=== PATIENT | male | born 1935 | race Caucasian/White ===

== ENCOUNTER 2016-11-22 16:09 | Inpatient (IN) | payer MEDICARE ==
[~2016-11-22] VITALS: Ht 172.7 cm; Wt 93.8 kg
[~2016-11-22 16:09] MED LIST: ASPI81 PO; ATEN1TAB73 PO; FISH1000 PO; FLAXOIL2 PO; LORT5TAB PO; PROT40TA PO; SIMV20 PO; TAB-TAB PO
[2016-11-22 16:50] VITALS: BP 180/86; PULSE 67; RESP 18; TEMP 98; O2SAT 99
[2016-11-22] MEDS ORDERED: ONDANSETRON HCL 4 MG/2 ML VIAL IVP ONE (18:00)
[2016-11-22] MEDS ORDERED: HYDROmorphone HCL PF 1 MG/ML VIAL IVS ONE (18:00)
[2016-11-22] MEDS ORDERED: SODIUM CHLORIDE 0.9% FLUSH 10 ML FLUSH IVF PRN (18:00)
--- NOTE | 2016-11-22 18:14 | PD ---
HPI Chief Complaint: Fall Time Seen by Provider: 17:49 Travel History International Travel<30 days: No Contact w/Intl Traveler<30days: No Traveled to known affect area: No History of Present Illness HPI 81 yo M arrives after he fell while removing an object from his truck. He fell onto the right hip. He's had constant pain since. Any movement worsens the pain. He was unable to get up. He denies injury elsewhere. He did not lose consciousness or hit his head. Onset occurred about 45 minutes prior to ER arrival. Primary care provider is José Luis Masters. [facility] Past Medical History Heart Rhythm Problems: Yes Cancer: No Cardiac Catheterization: Yes Cardiovascular Problems: Yes High Cholesterol: Yes Diabetes: No GERD: Yes Glaucoma: No Hepatitis: No Hiatal Hernia: No Hypertension: No Thyroid Disease: No Past Surgical History Abdominal Surgery: Yes (HERNIA REPAIR) Pacemaker: No Social History Alcohol Use: Yes (A DRINK DAILY) Tobacco Use: No Substance Use: No Allergies-Medications (Allergen,Severity, Reaction): Coded Allergies: No Known Allergies (Verified , 09/23/09) Reported Meds & Prescriptions Reported Meds & Active Scripts Active Review of Systems Except as stated in HPI: all other systems reviewed are Neg General / Constitutional: No: Fever Musculoskeletal: Positive: Pain Neurologic: Positive: Paresthesia Physical Exam Narrative GENERAL: 81 yo M, WNWD, moderate distress SKIN: Warm and dry. HEAD: Atraumatic. Normocephalic. EYES: Pupils equal and round. No scleral icterus. No injection or drainage. ENT: No nasal bleeding or discharge. Mucous membranes pink and moist. NECK: Trachea midline. No JVD. CARDIOVASCULAR: Regular rate and rhythm. RESPIRATORY: No accessory muscle use. Clear to auscultation. Breath sounds equal bilaterally. GASTROINTESTINAL: Abdomen soft, non-tender, nondistended. Hepatic and splenic margins not palpable. MUSCULOSKELETAL: RLE shortened and externally rotated. 2+ DP bilaterally. Pt unable to flex RLE at hip. Passive ROM causes pain on right side as does axial load. LLE normal. NEUROLOGICAL: Awake and alert. No obvious cranial nerve deficits. Motor grossly within normal limits. Five out of 5 muscle strength in the arms and legs. Normal speech. PSYCHIATRIC: Appropriate mood and affect; insight and judgment normal. Data Data Last Documented VS Vital Signs Date Time Temp Pulse Resp B/P Pulse Ox O2 Delivery O2 Flow Rate FiO2 11/22/16 16:50 98.0 67 18 180/86 99 VS reviewed Orders Electrocardiogram (11/22/16 17:49) Complete Blood Count With Diff (11/22/16 17:49) Comprehensive Metabolic Panel (11/22/16 17:49) Prothrombin Time / Inr (Pt) (11/22/16 17:49) Act Partial Throm Time (Ptt) (11/22/16 17:49) Chest, Single Ap (11/22/16 17:49) Femur (Ap & Lat/2vws) (11/22/16 17:49) Hip, Uni(Ap&Lat) W Ap Pelvis (11/22/16 17:49) Iv Access Insert/Monitor (11/22/16 17:49) Oximetry (11/22/16 17:49) Ecg Monitoring (11/22/16 17:49) Ondansetron Inj (Zofran Inj) (11/22/16 18:00) Sodium Chloride 0.9% Flush (Ns Flush) (11/22/16 18:00) Hydromorphone Pf Inj (Dilaudid Pf Inj) (11/22/16 18:00) Ct Pelvis W/O Iv Contrast (11/22/16 ) Admit Order (Ed Use Only) (11/22/16 18:52) Labs Laboratory Tests Test 11/22/16 18:10 White Blood Count 9.3 TH/MM3 Red Blood Count 4.39 MIL/MM3 Hemoglobin 13.9 GM/DL Hematocrit 39.6 % Mean Corpuscular Volume 90.2 FL Mean Corpuscular Hemoglobin 31.7 PG Mean Corpuscular Hemoglobin 35.1 % Concent Red Cell Distribution Width 14.6 % Platelet Count 151 TH/MM3 Mean Platelet Volume 8.6 FL Neutrophils (%) (Auto) 70.0 % Lymphocytes (%) (Auto) 15.1 % Monocytes (%) (Auto) 9.1 % Eosinophils (%) (Auto) 4.6 % Basophils (%) (Auto) 1.2 % Neutrophils # (Auto) 6.5 TH/MM3 Lymphocytes # (Auto) 1.4 TH/MM3 Monocytes # (Auto) 0.8 TH/MM3 Eosinophils # (Auto) 0.4 TH/MM3 Basophils # (Auto) 0.1 TH/MM3 CBC Comment DIFF FINAL Differential Comment Prothrombin Time 11.2 SEC Prothromb Time International 1.0 RATIO Ratio Activated Partial 26.4 SEC Thromboplast Time Sodium Level 138 MEQ/L Potassium Level 3.9 MEQ/L Chloride Level 101 MEQ/L Carbon Dioxide Level 28.7 MEQ/L Anion Gap 8 MEQ/L Blood Urea Nitrogen 18 MG/DL Creatinine 0.88 MG/DL Estimat Glomerular Filtration 83 ML/MIN Rate Random Glucose 121 MG/DL Calcium Level 9.0 MG/DL Total Bilirubin 1.0 MG/DL Aspartate Amino Transf 27 U/L (AST/SGOT) Alanine Aminotransferase 49 U/L (ALT/SGPT) Alkaline Phosphatase 75 U/L Total Protein 7.3 GM/DL Albumin 4.1 GM/DL MDM Medical Decision Making Medical Screen Exam Complete: Yes Emergency Medical Condition: Yes Medical Record Reviewed: Yes Differential Diagnosis Pelvis fracture, femur fracture, hip contusion Narrative Course CBC & BMP Diagram 11/22/16 18:10 LFTs essentially unremarkable Patient has an intertrochanteric right hip fracture. He'll be admitted for operative management. Discussed with Dr Chavarria for [facility]. D/w Dr Sevilla for ortho , npo p midnight, ORIF for tomorrow. Pt pain free at 709PM, approximate time of admission. Diagnosis Primary Impression: Hip fracture, right Qualified Code: S72.001A - Hip fracture, right, closed, initial encounter Admitting Information Admitting Physician Requests: Admit Mir Holbrook MD Nov 22, 2016 18:14
[2016-11-22 18:40] LABS: AUTOMATED NEUTROPHIL # 6.5 TH/MM3 (1.8-7.7); BASOPHIL # 0.1 TH/MM3 (0-0.2); BASOPHIL % 1.2 % (0.0-2.0); EOSINOPHIL # 0.4 TH/MM3 (0-0.4); EOSINOPHIL % 4.6 % (0.0-4.0); HEMATOCRIT 39.6 % (39.0-51.0); HEMO FLAGS DIFF FINAL; LYMPH % 15.1 % (9.0-44.0); LYMPHOCYTE # 1.4 TH/MM3 (1.0-4.8); MEAN CELL VOLUME 90.2 FL (80.0-100.0); MEAN CORPUSCULAR HEMOGLOBIN 31.7 PG (27.0-34.0); MEAN CORPUSCULAR HGB CONC 35.1 % (32.0-36.0); MONO % 9.1 % (0.0-8.0); PLATELET COUNT 151 TH/MM3 (150-450); RED BLOOD COUNT 4.39 MIL/MM3 (4.50-5.90); RED CELL DISTRIBUTION WIDTH 14.6 % (11.6-17.2); WHITE BLOOD COUNT 9.3 TH/MM3 (4.0-11.0)
[2016-11-22 18:49] LABS: APTT (PATIENT) 26.4 SEC (24.3-30.1); PROTHROMBIN TIME - PATIENT 11.2 SEC (9.8-11.6)
--- NOTE | 2016-11-22 18:55 | RADRPT ---
EXAM DATE/TIME: 11/22/2016 18:23 [facility] COMPARISON: No previous studies available for comparison. INDICATIONS : Fall with obvious fractured right hip. MEDICAL HISTORY : None. SURGICAL HISTORY : None. ENCOUNTER: Initial ACUITY: 1 day PAIN SCORE: 4/10 LOCATION: Bilateral upper chest FINDINGS: A single view of the chest demonstrates the lungs to be symmetrically aerated without evidence of mas s, infiltrate or effusion. The cardiomediastinal contours are unremarkable. Osseous structures are intact. CONCLUSION: Normal examination. José Luis Hernandez MD on November 22, 2016 at 18:53 Board Certified Radiologist. This report was verified electronically.
--- NOTE | 2016-11-22 18:58 | RADRPT ---
EXAM DATE/TIME: 11/22/2016 18:18 [facility] COMPARISON: No previous studies available for comparison. INDICATIONS : Right hip pain post fall. MEDICAL HISTORY : None. SURGICAL HISTORY : None. ENCOUNTER: Initial ACUITY: 1 day PAIN SCORE: 7/10 LOCATION: Right hip FINDINGS: There is an intertrochanteric femoral neck fracture. There is separate fracture at the lesser trochanter. The left femoral neck has a horizontal orientation. There has been some proxima l displacement of the femoral shaft. No other fracture is seen. There is some hypertrophic change a nd spurring seen around the periphery of the femoral head on the right. The hip joint is normally al igned. CONCLUSION: Intertrochanteric femoral neck fracture on the right. José Luis Hernandez MD on November 22, 2016 at 18:54 Board Certified Radiologist. This report was verified electronically.
--- NOTE | 2016-11-22 19:00 | RADRPT ---
EXAM DATE/TIME: 11/22/2016 18:19 [facility] COMPARISON: No previous studies available for comparison. INDICATIONS : Right leg pain post fall. MEDICAL HISTORY : None. SURGICAL HISTORY : None. ENCOUNTER: Initial ACUITY: 1 day PAIN SCORE: 8/10 LOCATION: Right leg FINDINGS: Again noted is an intertrochanteric femora neck fracture. There is a separate fracture at the lesser trochanter. The remaining aspect of the femur appears intact. The hip and knee joint s are normally aligned. CONCLUSION: Intertrochanteric right femoral neck fracture. José Luis Hernandez MD on November 22, 2016 at 18:55 Board Certified Radiologist. This report was verified electronically.
[2016-11-22 19:02] LABS: ANION GAP 8 MEQ/L (5-15); AST (GOT) 27 U/L (15-37); BICARBONATE 28.7 MEQ/L (21.0-32.0); BLOOD UREA NITROGEN 18 MG/DL (7-18); CHLORIDE 101 MEQ/L (98-107); GLOMERULAR FILTRATION RATE 83 ML/MIN (>89); POTASSIUM 3.9 MEQ/L (3.5-5.1); SODIUM (NA) 138 MEQ/L (136-145)
[2016-11-22 19:05] LABS: ALKALINE PHOSPHATASE 75 U/L (45-117); ALT (GPT) 49 U/L (12-78)
[2016-11-22] MEDS ORDERED: PRAV20TA2 PO (19:08)
[2016-11-22] MEDS ORDERED: DONE5TAB7 PO (19:08)
[2016-11-22] MEDS ORDERED: VALS1TAB65 PO (19:08)
[2016-11-22] MEDS ORDERED: GABA300C5 PO (19:08)
[2016-11-22] MEDS ORDERED: XARE10TA PO (19:08)
[2016-11-22] MEDS ORDERED: DIVA250T PO (19:08)
--- NOTE | 2016-11-22 19:11 | RADRPT ---
EXAM DATE/TIME: 11/22/2016 18:37 [facility] COMPARISON: HIP RIGHT (AP&LAT 2/3VWS) W AP PELVIS, November 22, 2016, 18:18. FEMUR RIGHT (A P & LAT/2VWS), November 22, 2016, 18:19. INDICATIONS : Trauma; fall. ORAL CONTRAST: No oral contrast ingested. RADIATION DOSE: 23.21 CTDIvol (mGy) MEDICAL HISTORY : Non-responsive. SURGICAL HISTORY : Non-responsive. ENCOUNTER: Initial ACUITY: 1 day PAIN SCALE: 10/10 LOCATION: pelvis TECHNIQUE: Volumetric scanning of the pelvis was performed. Using automated exposure control and adjustment of the mA and/or kV according to patient size, radiation dose was kept as low as reasonab ly achievable to obtain optimal diagnostic quality images. FINDINGS: There is an intertrochanteric right femoral neck fracture. There is a separate fract ure fragment at the lesser trochanter. There is also some fracturing of the greater trochanter. The right femoral head is normally positioned in the right acetabulum. There is some hypertrophic soto e and spurring seen at the right femoral head. There is some mild spurring at the left femoral head. The left hip joint is normally aligned. The right hip joint is still aligned. No other possible fra cture is seen. There is degenerative change at the lower lumbar spine. There is a prominent area of fat extending into the right inguinal canal consistent with a hernia. No bowel is seen. There are a few scattered small colonic diverticula seen. CONCLUSION: 1. Right intertrochanteric femoral neck fracture with fracture fragments involving the greater and le sser trochanters. 2. Right inguinal hernia containing only fat. José Luis Hernandez MD on November 22, 2016 at 19:02 Board Certified Radiologist. This report was verified electronically.
[2016-11-22 19:30] VITALS: BP 139/71; PULSE 67; RESP 17; O2SAT 96
[2016-11-22] MEDS ORDERED: ACETAMINOPHEN 325 MG TAB PO PRN (19:45)
[2016-11-22] MEDS ORDERED: MORPHINE SULFATE 4 MG/ML INJ IV PRN (19:45)
[2016-11-22] MEDS ORDERED: ONDANSETRON HCL 4 MG/2 ML VIAL IVP PRN (19:45)
[2016-11-22] MEDS ORDERED: SODIUM CHLORIDE 0.9% FLUSH 10 ML FLUSH IV FLUSH PRN (19:45)
[2016-11-22] MEDS ORDERED: BISACODYL 10 MG SUPP RECTAL PRN (19:45)
--- NOTE | 2016-11-22 19:45 | HHI.HP ---
[facility] Naga Masters MD Admission Diagnosis Fall, Comminuted Fx R Greater Trochanter Diagnoses: (1) Fall Diagnosis: Principal (2) Hip fracture, right Diagnosis: Principal (3) HTN (hypertension) Diagnosis: Principal (4) Dehydration Diagnosis: Principal Travel History International Travel<30 Days: No Contact w/Intl Traveler <30 Da: No Traveled to Known Affected Are: No History of Present Illness This is an 81-year-old male with a PMH of HTN, Hyperlipidemia and GERD who is brought to the ER by EMS secondary to complaints of right hip pain after fall. Per patient, he was moving furniture when he had sudden mechanical fall onto right hip. No LOC or head trauma reported. On arrival, BP 180/86, HR 67, O2 sat 99% on RA, Afebrile. CBC unremarkable. Chemistry unremarkable except for GFR of 83. INR 1.0. CT Pelvis with right intertrochanteric [place] femoral neck fracture. Hip/Pelvis X-ray intertrochanteric femoral neck fracture on the right. Femur X-ray with same findings. CXR with no acute findings. Dr. Sevilla consulted by ER physician, recommended medical admission w/ plans for surgical intervention possibly in am. Review of Systems Except as stated in HPI: all other systems reviewed are Neg ROS: 14 point review of systems otherwise negative. Past Family Social History Past Medical History PMH: HTN, Hyperlipidemia and GERD Past Surgical History PAST SURGICAL HISTORY: Hernia Repair Allergies: Coded Allergies: No Known Allergies (Verified , 11/22/16) Family History PAST FAMILY HISTORY: Reviewed. No h/o DM or CAD Social History PAST SOCIAL HISTORY: One drink daily. Negative for tobacco or drugs. Physical Exam Vital Signs Vital Signs Date Time Temp Pulse Resp B/P Pulse Ox O2 Delivery O2 Flow Rate FiO2 11/22/16 16:50 98.0 67 18 180/86 99 Physical Exam PE: GENERAL: Pleasant elderly white male in no acute distress. at bedside. HEENT: PERRLA, EOMI. No scleral icterus or conjunctival pallor. No lid lag or facial droop. CARDIOVASCULAR: Regular rate and rhythm. No obvious murmurs to auscultation. No chest tenderness to palpation. RESPIRATORY: No obvious rhonchi or wheezing. Clear to auscultation. Breath sounds equal bilaterally. GASTROINTESTINAL: Abdomen soft, non-tender, nondistended. BS normal. MUSCULOSKELETAL: Decreased ROM of RLE due to injury. Pulses intact. NEUROLOGICAL: Awake, alert and oriented x4. No focal neurologic deficits. Moving both upper and lower extremities spontaneously. Laboratory Laboratory Tests Test 11/22/16 18:10 White Blood Count 9.3 Red Blood Count 4.39 Hemoglobin 13.9 Hematocrit 39.6 Mean Corpuscular Volume 90.2 Mean Corpuscular Hemoglobin 31.7 Mean Corpuscular Hemoglobin 35.1 Concent Red Cell Distribution Width 14.6 Platelet Count 151 Mean Platelet Volume 8.6 Neutrophils (%) (Auto) 70.0 Lymphocytes (%) (Auto) 15.1 Monocytes (%) (Auto) 9.1 Eosinophils (%) (Auto) 4.6 Basophils (%) (Auto) 1.2 Neutrophils # (Auto) 6.5 Lymphocytes # (Auto) 1.4 Monocytes # (Auto) 0.8 Eosinophils # (Auto) 0.4 Basophils # (Auto) 0.1 CBC Comment DIFF FINAL Differential Comment Prothrombin Time 11.2 Prothromb Time International 1.0 Ratio Activated Partial 26.4 Thromboplast Time Sodium Level 138 Potassium Level 3.9 Chloride Level 101 Carbon Dioxide Level 28.7 Anion Gap 8 Blood Urea Nitrogen 18 Creatinine 0.88 Estimat Glomerular Filtration 83 Rate Random Glucose 121 Calcium Level 9.0 Total Bilirubin 1.0 Aspartate Amino Transf 27 (AST/SGOT) Alanine Aminotransferase 49 (ALT/SGPT) Alkaline Phosphatase 75 Total Protein 7.3 Albumin 4.1 Result Diagram: 11/22/16180911/22/161809 Assessment and Plan Problem List: (1) Fall ICD Code: W19.XXXA Status: Acute (2) Hip fracture, right ICD Code: S72.001A Status: Acute (3) Dehydration ICD Code: E86.0 Status: Acute (4) HTN (hypertension) ICD Code: I10 Status: Acute Assessment and Plan A/P: 1. Fall: s/p mechanical fall while moving furniture, no LOC or head trauma reported. 2. Right Hip Fx: Hip/Pelvis X-ray, Femur X-ray and CT Pelvis w/ right intertrochanteric femoral neck fracture, images reviewed by me. Dr. Sevilla consulted by ER physician, recommended medical admission w/ plans for surgical intervention, likely in am. NPO, IVF, analgesics/antiemetics as needed. Pre- op labs unremarkable. CXR w/ no acute findings, images reviewed by me. 3. Dehydration: GFR 83, no previous labs for comparison. IVF, check U/a, repeat labs in am. 4. HTN: BP 180's on arrival, likely compounded by pain, currently BP 103/62, HR 64. Resume home medications, monitor BP. 5. DVT Prophylaxis: Anticoagulation post op per Ortho 6. Social work for d/c planning as needed. 7. Case discussed w/ ER physician at length. Physician Certification 2 Midnight Certification Type: Admission for Inpatient Services Order for Inpatient Services The services are ordered in accordance with Medicare regulations or non- Medicare payer requirements, as applicable. In the case of services not specified as inpatient-only, they are appropriately provided as inpatient services in accordance with the 2-midnight benchmark. Estimated LOS (days): 2 days is the estimated time the patient will need to remain in the hospital, assuming treatment plan goals are met and no additional complications. Post-Hospital Plan: Not yet determined Problem Qualifiers (1) Hip fracture, right: Qualified Code: S72.001A - Hip fracture, right, closed, initial encounter Yanelis Stack MD Nov 22, 2016 19:45
[2016-11-22] MEDS ORDERED: LIPI80TA PO (20:06)
[2016-11-22] MEDS ORDERED: ASPI1TAB69 PO (20:06)
[2016-11-22] MEDS ORDERED: ATEN1TAB73 PO (20:06)
[2016-11-22] MEDS: SODIUM CHLOR 0.9% 1000 ML INJ 1,000 ML IV SCH (20:19)
[2016-11-22 20:40] VITALS: BP 103/62; PULSE 64; RESP 17; TEMP 96.8; O2SAT 97
[2016-11-22] MEDS: METOPROLOL TARTRATE 25 MG TAB PO SCH (21:00)
[2016-11-22] MEDS: SODIUM CHLORIDE 0.9% FLUSH 10 ML FLUSH IV FLUSH SCH (21:00)
[2016-11-22] MEDS: ACETAMINOPHEN/HYDROcodone 325 MG/5 MG TAB PO PRN (22:00)
[2016-11-23 00:45] VITALS: BP 113/63; PULSE 83; RESP 17; TEMP 97; O2SAT 96
[2016-11-23] MEDS ORDERED: PILL SPLITTER OTHER PRN (01:45)
[2016-11-23] MEDS: ACETAMINOPHEN/HYDROcodone 325 MG/5 MG TAB PO PRN ×2 (02:29→06:16)
[2016-11-23 04:28] VITALS: BP 116/65; PULSE 80; RESP 17; TEMP 96.8; O2SAT 95
[2016-11-23 05:20] LABS: AUTOMATED NEUTROPHIL # 8.2 TH/MM3 (1.8-7.7); BASOPHIL % 0.4 % (0.0-2.0); EOSINOPHIL # 0.1 TH/MM3 (0-0.4); EOSINOPHIL % 0.9 % (0.0-4.0); HEMATOCRIT 33.4 % (39.0-51.0); HEMO FLAGS DIFF FINAL; LYMPH % 14.4 % (9.0-44.0); LYMPHOCYTE # 1.6 TH/MM3 (1.0-4.8); MEAN CELL VOLUME 90.7 FL (80.0-100.0); MEAN CORPUSCULAR HEMOGLOBIN 31.2 PG (27.0-34.0); MEAN CORPUSCULAR HGB CONC 34.4 % (32.0-36.0); MONO % 10.4 % (0.0-8.0); NEUT % 73.9 % (16.0-70.0); PLATELET COUNT 153 TH/MM3 (150-450); RED BLOOD COUNT 3.68 MIL/MM3 (4.50-5.90); RED CELL DISTRIBUTION WIDTH 14.7 % (11.6-17.2)
[2016-11-23 05:58] LABS: ALKALINE PHOSPHATASE 64 U/L (45-117); ALT (GPT) 38 U/L (12-78); ANION GAP 10 MEQ/L (5-15); AST (GOT) 21 U/L (15-37); BICARBONATE 27.4 MEQ/L (21.0-32.0); BLOOD UREA NITROGEN 17 MG/DL (7-18); CHLORIDE 101 MEQ/L (98-107); GLOMERULAR FILTRATION RATE 79 ML/MIN (>89); SODIUM (NA) 138 MEQ/L (136-145); TOTAL BILIRUBIN ADULT 0.8 MG/DL (0.2-1.0)
[2016-11-23] MEDS: SODIUM CHLOR 0.9% 1000 ML INJ 1,000 ML IV SCH (06:00)
[2016-11-23] MEDS ORDERED: ACETAMINOPHEN 1000 MG/100 ML VIAL IV ONE (07:45)
[2016-11-23] MEDS ORDERED: FAMOTIDINE 20 MG/2 ML VIAL ONE (07:46)
[2016-11-23] MEDS ORDERED: GENTAMICIN SULFATE 80 MG/2 ML VIAL ONE (08:03)
[2016-11-23] MEDS ORDERED: ceFAZolin 2 GM PREMIX 50 ML ONE (08:11)
[2016-11-23] MEDS ORDERED: VANCOMYCIN HCL 1000 MG VIAL ONE (08:11)
[2016-11-23] MEDS: SODIUM CHLORIDE 0.9% FLUSH 10 ML FLUSH IV FLUSH SCH ×2 (08:26→19:37)
--- NOTE | 2016-11-23 08:39 | MB ---
cc: ÁNGELA CAROLINA DATE OF CONSULTATION: 11/23/2016 REASON FOR CONSULTATION: Right intertrochanteric hip fracture. HISTORY 81-year male past history of hypertension, hyperlipidemia, gas reflex. She was brought by ambulance [facility] emergency room after a fall in his garage, he states he was moving furniture lost his balance, tripped with his right hip and landed on the right side, not hitting his head. Denies loss consciousness. He sustained severe injury and was unable stand, ambulate or move that right hip. They did come lateral one. X-rays in the emergency reveal evidence of right displaced comminuted intertrochanteric hip fracture. He has been admitted medical service, his is at the bedside. His pain is severe constant. It is only relieved with ice and not moving the leg. PAST MEDICAL HISTORY: Hypertension Hyperlipidemia Gastric reflux. SURGERIES Hernia repair ALLERGIES NO KNOWN DRUG ALLERGIES. FAMILY HISTORY Reviewed noncontributory. SOCIAL HISTORY Occasionally drinks alcohol, denies tobacco or drug use. REVIEW OF SYSTEMS Negative for 12 point review of systems PHYSICAL EXAMINATION: VITAL SIGNS: Temperature 98, pulse 67, respirations 18, blood pressure 180/86. IN GENERAL: The patient is awake, alert lying in bed no distress. HEAD, EYES, EARS, NOSE, AND THROAT: Normocephalic, atraumatic Pupils equal, round, reactive to light and accommodation extraocular muscles intact. NECK: The neck is supple. LUNGS: The lungs are clear. HEART: Regular rate and rhythm. ABDOMEN: The abdomen is soft, nontender. EXTREMITIES: His right lower extremity is shortened and externally rotating and flexion of the ankle and toes distally. Brisk cap refill. LABORATORY FINDINGS: White blood cell count 9.3, hemoglobin 13, hematocrit 39 Platelets 151, glucose 121 BUN 18, creatinine 0.8. X-rays right knee reveals displaced comminuted right intertrochanteric hip fracture. IMPRESSION 81-year male status post fall right displaced comminuted intertrochanteric hip fracture. PLAN: Discussed the diagnosis with the patient and his . We covered treatment options both operative and nonoperative, surgery would consist of open reduction internal fixation with intramedullary nailing the risks of the surgery were discussed including but limited to with infection damage to nerve damage to nerves, blood vessels, pain, stiffness, failure of hardware, blood clots, pulmonary embolism, even . The patient states he favored benefits of the risks and wished to do surgery. Written consent obtained surgical site has been marked. MD RAY Lima/pacheco 7:46 AM /8:30 AM
[2016-11-23] MEDS ORDERED: TRANEXAMIC ACID INJ 1,000 MG/10 ML AMP ONE (08:52)
[2016-11-23] MEDS: ATENOLOL 25 MG TAB PO SCH (09:00)
[2016-11-23] MEDS ORDERED: Post-op Orders (for Pharmacy) MISC XX ONE (09:09)
[2016-11-23] MEDS ORDERED: DO NOT ADM ANY ANTICOAGULANT DRUGS PRN (09:11)
[2016-11-23] MEDS ORDERED: MAGNESIUM HYDROXIDE SUSP 30 ML CUP PO PRN (09:15)
[2016-11-23] MEDS ORDERED: MISCELLANEOUS NURSING INFORMATION XX PRN (09:15)
[2016-11-23] MEDS ORDERED: NALOXONE HCL 0.4 MG/ML AMP IV PRN (09:15)
[2016-11-23] MEDS ORDERED: MORPHINE SULFATE 4 MG/ML INJ IV PUSH PRN (09:15)
[2016-11-23] MEDS ORDERED: MISCELLANEOUS PHARMACY INFORMATION XX ONE (09:15)
[2016-11-23] MEDS ORDERED: SODIUM CHLORIDE 0.9% FLUSH 10 ML FLUSH IV FLUSH PRN (09:15)
[2016-11-23] MEDS ORDERED: ONDANSETRON HCL 4 MG/2 ML VIAL IVP PRN (09:15)
[2016-11-23] MEDS ORDERED: ACETAMINOPHEN/HYDROcodone 325 MG/7.5 MG TAB PO PRN (09:15)
[2016-11-23] MEDS ORDERED: diphenhydrAMINE HCL 25 MG CAP PO PRN (09:15)
[2016-11-23] MEDS ORDERED: HYDR-3288 PO (09:23)
[2016-11-23] MEDS ORDERED: ENOX40P SQ (09:24)
[2016-11-23] MEDS ORDERED: *morphine SULFATE 8 MG/ML PERIprocedure ONLY ONE ×2 (09:41→09:47)
--- NOTE | 2016-11-23 09:43 | RADRPT ---
EXAM DATE/TIME: 11/23/2016 08:48 [facility] COMPARISON: CT PELVIS W/O CONTRAST, November 22, 2016, 18:37. INDICATIONS : ORIF rt hip. MEDICAL HISTORY : None. SURGICAL HISTORY : None. ENCOUNTER: Subsequent ACUITY: 1 day PAIN SCORE: Non-responsive. LOCATION: Right Hip FINDINGS: 2 views of the postoperative right hip demonstrate interval placement of the femoral ray and screw th rough the fracture femoral neck. Slight displacement of the fractured lesser trochanter. Good anatomi c alignment. CONCLUSION: Status post ORIF of the right intratrochanteric fracture with good anatomic alignment. Leti Rothman MD on November 23, 2016 at 9:39 Board Certified Radiologist. This report was verified electronically.
[2016-11-23] MEDS: ACETAMINOPHEN/HYDROcodone 325 MG/7.5 MG TAB PO PRN ×2 (09:45→16:49)
--- NOTE | 2016-11-23 09:48 | HHI.PR ---
Subjective Remarks Patient is seen postop. He reports feeling okay. Pain is controlled. No nausea or vomiting. Discussed with his at bedside. Objective Vitals Vital Signs Date Time Temp Pulse Resp B/P Pulse Ox O2 Delivery O2 Flow Rate FiO2 11/23/16 04:28 96.8 80 17 116/65 95 11/23/16 00:45 97.0 83 17 113/63 96 11/22/16 20:40 96.8 64 17 103/62 97 11/22/16 19:30 67 17 139/71 96 Room Air 11/22/16 16:50 98.0 67 18 180/86 99 I/O 11/22/16 11/22/16 11/22/16 11/23/16 11/23/16 11/23/16 07:00 15:00 23:00 07:00 15:00 23:00 Intake Total 120 ml Output Total 400 ml Balance 120 ml -400 ml Intake Oral 120 ml Output Urine Total 400 ml # Voids 1 # Bowel Movements 0 0 Result Diagram: 11/23/16 0441 11/23/16 044 Imaging Last Impressions Hip X-Ray 11/23/16 0000 Signed Impressions: Service Date/Time: Wednesday, November 23, 2016 08:48 - CONCLUSION: Status post ORIF of the right intratrochanteric fracture with good anatomic alignment. Leti Rothman MD Hip and Pelvis X-Ray 11/22/161748 Signed Impressions: Service Date/Time: Tuesday, November 22, 2016 18:18 - CONCLUSION: Intertrochanteric femoral neck fracture on the right. José Luis Hernandez MD Femur X-Ray 11/22/16 174 Signed Impressions: Service Date/Time: Tuesday, November 22, 2016 18:19 - CONCLUSION: Intertrochanteric right femoral neck fracture. José Luis Hernandez MD Chest X-Ray 11/22/161748 Signed Impressions: Service Date/Time: Tuesday, November 22, 2016 18:23 - CONCLUSION: Normal examination. José Luis Hernandez MD Pelvis CT 11/22/16 0000 Signed Impressions: Service Date/Time: Tuesday, November 22, 2016 18:37 - CONCLUSION: 1. Right intertrochanteric femoral neck fracture with fracture fragments involving the greater and lesser trochanters. 2. Right inguinal hernia containing only fat. José Luis Hernandez MD Objective Remarks GENERAL: This is a well-nourished, well-developed patient, in no apparent distress. CARDIOVASCULAR: Normal rate and regular rhythm without murmurs, gallops, or rubs. RESPIRATORY: Good respiratory efforts. Breath sounds equal and clear to auscultation bilaterally. GASTROINTESTINAL: Abdomen soft, non-tender, non-distended. Normal active bowel sounds MUSCULOSKELETAL: Extremities without cyanosis, or edema. Right hip postoperative dressing is clean and intact. Neurovascularly intact distally at the toes bilaterally. NEURO: Alert & Oriented x4 to person, place, time, situation. Moves all ext x4 PSYCH: Appropriate mood and affect. A/P Problem List: (1) Fall ICD Code: W19.XXXA Status: Acute (2) Hip fracture, right ICD Code: S72.001A Status: Acute (3) Dehydration ICD Code: E86.0 Status: Acute (4) HTN (hypertension) ICD Code: I10 Status: Acute Assessment and Plan 81-year-old male with: 1. Fall: s/p mechanical fall while moving furniture, no LOC or head trauma reported. 2. Right Hip Fx: Hip/Pelvis X-ray, Femur X-ray and CT Pelvis w/ right intertrochanteric femoral neck fracture. D - orthopedics following. Status post repair. Routine postop care per orthopedics. 3. Dehydration: GFR 83, no previous labs for comparison. IVF, check U/a, repeat labs in am. 4. HTN: BP 180's on arrival, likely compounded by pain. Continue home medications, monitor BP. 5. DVT Prophylaxis: Lovenox to be started tomorrow per orthopedics. Problem Qualifiers (1) Hip fracture, right: Qualified Code: S72.001A - Hip fracture, right, closed, initial encounter Steph Chavarria MD Nov 23, 2016 09:47
[2016-11-23] MEDS: DEXT 5%-NACL 0.45% 1000 ML INJ 1,000 ML IV SCH (10:00)
[2016-11-23 12:00] VITALS: BP 115/75; PULSE 61; RESP 14; TEMP 95.4; O2SAT 100
[2016-11-23] MEDS ORDERED: ONDANSETRON HCL 4 MG/2 ML VIAL IV PUSH ONE (12:00)
[2016-11-23] MEDS ORDERED: PHENYLEPH/NS 1000 MCG/10 ML SYR IV ONE (12:00)
[2016-11-23] MEDS ORDERED: ePHEDrine/NS 25 MG/5 ML SYR IV ONE (12:00)
[2016-11-23] MEDS ORDERED: PROPOFOL 200 MG/20 ML AMP IV ONE (12:00)
--- NOTE | 2016-11-23 14:46 | EKG ---
Date Performed: 11/22/2016 Time Performed: 19:32:49 PTAGE: 81 years EKG: Sinus rhythm WITH SINUS ARRHYTHMIA Compared to prior tracing no significant change NORMAL ECG PREVIOUS TRACING : 05/18/2009 15.58 DOCTOR: Perico Leroy Interpretating Date/Time 11/23/2016 14:42:17
[2016-11-23 16:00] VITALS: BP 119/67; PULSE 62; RESP 16; TEMP 95.4; O2SAT 98
[2016-11-23] MEDS: ceFAZolin 1,000 MG/NS 100 ML IV SCH ×4 (16:47→23:43)
[2016-11-23 17:59] VITALS: O2SAT 98
[2016-11-23] MEDS: DOCUSATE SODIUM 50 MG/SENNA 8.6 MG TAB PO SCH (19:34)
[2016-11-23] MEDS: ATORVASTATIN 80 MG TAB PO SCH (19:34)
[2016-11-23 20:00] VITALS: BP 117/65; PULSE 73; RESP 18; TEMP 96.9; O2SAT 95
[2016-11-24] VITALS (8 sets, daily range): BP systolic 106–148; BP diastolic 57–82; PULSE 69–83; RESP 17–22; TEMP 96.7–98.6; O2SAT 96–98
[2016-11-24] MEDS: ACETAMINOPHEN/HYDROcodone 325 MG/7.5 MG TAB PO PRN ×2 (05:06→17:20)
[2016-11-24] MEDS: DEXT 5%-NACL 0.45% 1000 ML INJ 1,000 ML IV SCH ×2 (06:00→13:40)
[2016-11-24 06:26] LABS: BICARBONATE 27.5 MEQ/L (21.0-32.0); POTASSIUM 4.3 MEQ/L (3.5-5.1)
[2016-11-24 06:34] LABS: HEMATOCRIT 26.7 % (39.0-51.0); MEAN CELL VOLUME 90.8 FL (80.0-100.0); MEAN CORPUSCULAR HEMOGLOBIN 31.9 PG (27.0-34.0); MEAN CORPUSCULAR HGB CONC 35.1 % (32.0-36.0); PLATELET COUNT 150 TH/MM3 (150-450); RED BLOOD COUNT 2.94 MIL/MM3 (4.50-5.90); RED CELL DISTRIBUTION WIDTH 14.7 % (11.6-17.2); REVIEW FLAG FINAL; WHITE BLOOD COUNT 13.5 TH/MM3 (4.0-11.0)
--- NOTE | 2016-11-24 08:05 | PD.ORT.PN ---
Subjective Post Op Day #: 1 Subjective Remarks pain tolerable Objective Vitals Vital Signs Date Time Temp Pulse Resp B/P Pulse Ox O2 Delivery O2 Flow Rate FiO2 11/24/16 04:00 97.9 74 22 124/67 97 11/24/16 00:00 97.2 76 20 106/61 96 11/23/16 20:00 96.9 73 18 117/65 95 11/23/16 17:59 98 Nasal Cannula 2.00 11/23/16 16:00 95.4 62 16 119/67 98 11/23/16 12:00 95.4 61 14 115/75 100 11/23/16 10:00 63 12 131/72 99 Nasal Cannula 2 11/23/16 09:45 67 14 123/74 95 Nasal Cannula 2 11/23/16 09:30 69 12 152/84 98 Nasal Cannula 2 11/23/16 09:15 72 11 127/80 99 Nasal Cannula 2 11/23/16 09:12 98.1 72 10 125/74 99 Simple Mask 5 I/O 11/23/16 11/23/16 11/23/16 11/24/16 11/24/16 11/24/16 07:00 15:00 23:00 07:00 15:00 23:00 Intake Total 1040 ml 240 ml 240 ml Output Total 400 ml 350 ml 250 ml Balance -400 ml 690 ml 240 ml -10 ml Intake Oral 290 ml 240 ml 240 ml IV Total 150 ml Other 600 ml Output Urine Total 400 ml 250 ml 250 ml Estimated Blood Loss 100 ml # Voids 1 1 # Bowel Movements 0 0 0 Result Diagram: 11/24/16 0543 11/24/16 0543 Objective Remarks in bed, nad dressing c/d/i neg homans nvi Assessment & Plan Ortho Post Op Day #: 1 Problem List: Assessment and Plan s/p R Troch Nail POD#1 50% PWB daily dressing changes lovenox d/c planning home with [facility] and pt ortho stable f/up dr. santoyo 2 weeks Andrei Orozco Nov 24, 2016 08:05
[2016-11-24] MEDS: DOCUSATE SODIUM 50 MG/SENNA 8.6 MG TAB PO SCH ×2 (09:00→21:00)
[2016-11-24] MEDS: SODIUM CHLORIDE 0.9% FLUSH 10 ML FLUSH IV FLUSH SCH ×2 (09:00→21:02)
[2016-11-24] MEDS: ATENOLOL 25 MG TAB PO SCH (09:43)
[2016-11-24] MEDS: MULTIVITAMINS/MINERALS THERAPEUTIC TAB PO SCH (09:43)
[2016-11-24] MEDS: ENOXAPARIN SODIUM 40 MG/0.4 ML SYRINGE SQ SCH (09:43)
--- NOTE | 2016-11-24 14:36 | HHI.PR ---
Subjective Remarks Patient is doing better this morning. Participating with physical therapy. Pain is controlled. Objective Vitals Vital Signs Date Time Temp Pulse Resp B/P Pulse Ox O2 Delivery O2 Flow Rate FiO2 11/24/16 11:35 96.7 69 17 117/67 97 11/24/16 08:48 96 Nasal Cannula 2.00 11/24/16 07:57 97.9 83 17 148/82 97 11/24/16 04:00 97.9 74 22 124/67 97 11/24/16 00:00 97.2 76 20 106/61 96 11/23/16 20:00 96.9 73 18 117/65 95 11/23/16 17:59 98 Nasal Cannula 2.00 11/23/16 16:00 95.4 62 16 119/67 98 I/O 11/23/16 11/23/16 11/23/16 11/24/16 11/24/16 11/24/16 07:00 15:00 23:00 07:00 15:00 23:00 Intake Total 1040 ml 240 ml 240 ml Output Total 400 ml 350 ml 250 ml Balance -400 ml 690 ml 240 ml -10 ml Intake Oral 290 ml 240 ml 240 ml IV Total 150 ml Other 600 ml Output Urine Total 400 ml 250 ml 250 ml Estimated Blood Loss 100 ml # Voids 1 1 # Bowel Movements 0 0 0 Result Diagram: 11/24/16 0543 11/24/16 0543 Objective Remarks GENERAL: This is a well-nourished, well-developed patient, in no apparent distress. CARDIOVASCULAR: Normal rate and regular rhythm without murmurs, gallops, or rubs. RESPIRATORY: Good respiratory efforts. Breath sounds equal and clear to auscultation bilaterally. GASTROINTESTINAL: Abdomen soft, non-tender, non-distended. Normal active bowel sounds MUSCULOSKELETAL: Extremities without cyanosis, or edema. Right hip postoperative dressing is clean and intact. Neurovascularly intact distally at the toes bilaterally. NEURO: Alert & Oriented x4 to person, place, time, situation. Moves all ext x4 PSYCH: Appropriate mood and affect. A/P Problem List: (1) Fall ICD Code: W19.XXXA Status: Acute (2) Hip fracture, right ICD Code: S72.001A Status: Acute (3) Dehydration ICD Code: E86.0 Status: Acute (4) HTN (hypertension) ICD Code: I10 Status: Acute Assessment and Plan 81-year-old male with: 1. Fall: s/p mechanical fall while moving furniture, no LOC or head trauma reported. 2. Right Hip Fx: Hip/Pelvis X-ray, Femur X-ray and CT Pelvis w/ right intertrochanteric femoral neck fracture. - orthopedics following. Status post repair. Routine postop care per orthopedics. Progressing well with PT 3. Dehydration: Resolved with IV fluid. Discontinue IV fluid 4. HTN: Blood pressure elevated on arrival. Likely secondary to pain. Blood pressure is not acceptable. Continue home medications, monitor BP. 5. DVT Prophylaxis: Lovenox per orthopedics. Discharge Planning Plan to discharge tomorrow with home health and physical therapy. Problem Qualifiers (1) Hip fracture, right: Qualified Code: S72.001A - Hip fracture, right, closed, initial encounter Steph Chavarria MD Nov 24, 2016 14:36
[2016-11-24] MEDS: ATORVASTATIN 80 MG TAB PO SCH (21:01)
[2016-11-25 00:25] VITALS: BP 106/59; PULSE 73; RESP 17; TEMP 99.2; O2SAT 96
[2016-11-25] MEDS: DEXT 5%-NACL 0.45% 1000 ML INJ 1,000 ML IV SCH (01:58)
[2016-11-25 06:27] LABS: HEMATOCRIT 23.2 % (39.0-51.0); MEAN CELL VOLUME 90.7 FL (80.0-100.0); MEAN CORPUSCULAR HEMOGLOBIN 32.6 PG (27.0-34.0); PLATELET COUNT 123 TH/MM3 (150-450); RED BLOOD COUNT 2.56 MIL/MM3 (4.50-5.90); RED CELL DISTRIBUTION WIDTH 14.9 % (11.6-17.2); WHITE BLOOD COUNT 10.4 TH/MM3 (4.0-11.0)
[2016-11-25 06:36] LABS: REVIEW FLAG FINAL
[2016-11-25 06:50] LABS: BICARBONATE 27.4 MEQ/L (21.0-32.0); POTASSIUM 4.2 MEQ/L (3.5-5.1)
[2016-11-25 07:50] VITALS: BP 148/65; PULSE 73; RESP 16; TEMP 98.8; O2SAT 96
[2016-11-25] MEDS: ATENOLOL 25 MG TAB PO SCH (08:29)
[2016-11-25] MEDS: MULTIVITAMINS/MINERALS THERAPEUTIC TAB PO SCH (08:29)
[2016-11-25] MEDS: ENOXAPARIN SODIUM 40 MG/0.4 ML SYRINGE SQ SCH (08:30)
[2016-11-25] MEDS: DOCUSATE SODIUM 50 MG/SENNA 8.6 MG TAB PO SCH (08:31)
[2016-11-25] MEDS: ACETAMINOPHEN/HYDROcodone 325 MG/7.5 MG TAB PO PRN (08:31)
[2016-11-25] MEDS: SODIUM CHLORIDE 0.9% FLUSH 10 ML FLUSH IV FLUSH SCH (08:31)
--- NOTE | 2016-11-25 08:42 | HHI.DCPOC ---
Discharge Care Plan Diagnosis: (1) Fall (2) Hip fracture, right (3) HTN (hypertension) (4) Dehydration Goals to Promote Your Health * To prevent worsening of your condition and complications * To maintain your health at the optimal level Directions to Meet Your Goals Take your medications as prescribed Follow your dietary instruction Follow activity as directed Keep your appointments as scheduled Take your immunizations and boosters as scheduled If your symptoms worsen call your PCP, if no PCP go to Urgent Care Center or Emergency Room Smoking is Dangerous to Your Health. Avoid second hand smoke Call the 24-hour hour crisis hotline for domestic abuse at Steph Chavarria MD Nov 25, 2016 08:42
[2016-11-25] MEDS ORDERED: WALKER WHEELS/F1 MIS (08:44)
--- NOTE | 2016-11-25 08:44 | HHI.DS ---
Discharge Summary Admission Date Nov 22, 2016 at 18:53 Discharge Date: Nov 25, 2016 Admitting Diagnosis Fall, Comminuted Fx R Greater Trochanter (1) Fall ICD Code: W19.XXXA (2) Hip fracture, right ICD Code: S72.001A (3) Dehydration ICD Code: E86.0 (4) HTN (hypertension) ICD Code: I10 Procedures ORIF for right hip fracture Brief History - From Admission This is an 81-year-old male with a PMH of HTN, Hyperlipidemia and GERD who is brought to the ER by EMS secondary to complaints of right hip pain after fall. Per patient, he was moving furniture when he had sudden mechanical fall onto right hip. No LOC or head trauma reported. On arrival, BP 180/86, HR 67, O2 sat 99% on RA, Afebrile. CBC unremarkable. Chemistry unremarkable except for GFR of 83. INR 1.0. CT Pelvis with right intertrochanteric Abdias femoral neck fracture. Hip/Pelvis X-ray intertrochanteric femoral neck fracture on the right. Femur X-ray with same findings. CXR with no acute findings. Dr. Sevilla consulted by ER physician, recommended medical admission w/ plans for surgical intervention. CBC/BMP: 11/25/16 0549 11/25/16 0549 Significant Findings Laboratory Tests Test 11/22/16 11/23/16 11/24/16 11/25/16 18:10 04:41 05:43 05:49 Red Blood Count 4.39 MIL/MM3 3.68 MIL/MM3 2.94 MIL/MM3 2.56 MIL/MM3 (4.50-5.90) (4.50-5.90) (4.50-5.90) (4.50-5.90) Monocytes (%) (Auto) 9.1 % (0.0-8.0) 10.4 % (0.0-8.0) Eosinophils (%) (Auto) 4.6 % (0.0-4.0) Estimat Glomerular Filtration 83 ML/MIN (>89) 79 ML/MIN (>89) Rate Random Glucose 121 MG/DL 156 MG/DL 134 MG/DL 124 MG/DL (74-106) (74-106) (74-106) (74-106) Hemoglobin 11.5 GM/DL 9.4 GM/DL 8.4 GM/DL (13.0-17.0) (13.0-17.0) (13.0-17.0) Hematocrit 33.4 % 26.7 % 23.2 % (39.0-51.0) (39.0-51.0) (39.0-51.0) Neutrophils (%) (Auto) 73.9 % (16.0-70.0) Neutrophils # (Auto) 8.2 TH/MM3 (1.8-7.7) Monocytes # (Auto) 1.1 TH/MM3 (0-0.9) Calcium Level 8.2 MG/DL 8.1 MG/DL 8.2 MG/DL (8.5-10.1) (8.5-10.1) (8.5-10.1) Total Protein 6.1 GM/DL (6.4-8.2) White Blood Count 13.5 TH/MM3 (4.0-11.0) Platelet Count 123 TH/MM3 (150-450) Imaging Last Impressions Hip X-Ray 11/23/16 0000 Signed Impressions: Service Date/Time: Wednesday, November 23, 2016 08:48 - CONCLUSION: Status post ORIF of the right intratrochanteric fracture with good anatomic alignment. Leti Rothman MD Hip and Pelvis X-Ray 11/22/161748 Signed Impressions: Service Date/Time: Tuesday, November 22, 2016 18:18 - CONCLUSION: Intertrochanteric femoral neck fracture on the right. José Luis Hernandez MD Femur X-Ray 11/22/161748 Signed Impressions: Service Date/Time: Tuesday, November 22, 2016 18:19 - CONCLUSION: Intertrochanteric right femoral neck fracture. José Luis Hernandez MD Chest X-Ray 11/22/161748 Signed Impressions: Service Date/Time: Tuesday, November 22, 2016 18:23 - CONCLUSION: Normal examination. José Luis Hernandez MD Pelvis CT 11/22/16 0000 Signed Impressions: Service Date/Time: Tuesday, November 22, 2016 18:37 - CONCLUSION: 1. Right intertrochanteric femoral neck fracture with fracture fragments involving the greater and lesser trochanters. 2. Right inguinal hernia containing only fat. José Luis Hernandez MD PE at Discharge GENERAL: This is a well-nourished, well-developed patient, in no apparent distress. CARDIOVASCULAR: Normal rate and regular rhythm without murmurs, gallops, or rubs. RESPIRATORY: Good respiratory efforts. Breath sounds equal and clear to auscultation bilaterally. GASTROINTESTINAL: Abdomen soft, non-tender, non-distended. Normal active bowel sounds MUSCULOSKELETAL: Extremities without cyanosis, or edema. Right hip postoperative dressing is clean and intact. Neurovascularly intact distally at the toes bilaterally. NEURO: Alert & Oriented x4 to person, place, time, situation. Moves all ext x4 PSYCH: Appropriate mood and affect. Pt update on day of discharge Patient reports he is feeling well. Anxious to go home. Pain is well controlled. Hospital Course 81-year-old male admitted with the right hip fracture after mechanical fall. The patient was followed by orthopedic surgery. He underwent ORIF for the hip fracture. He progressed well with physical therapy. He is discharge home with home health and physical therapy. He presented with mild dehydration which resolved with IV fluid. On presentation, his blood pressure was elevated which was likely secondary to pain. His blood pressure normalized with his home medications. Patient is discharged in stable condition to follow up outpatient with orthopedics. Pt Condition on Discharge: Stable Discharge Disposition: Disch w/ Home Health Serv Discharge Time: <= 30 minutes Discharge Instructions DIET: Follow Instructions for: Heart Healthy Diet Activities you can perform: See Additionl Instruction Other Activity Instructions: Per Orthopedics and PT instructions. Follow up Referrals: Orthopedics - 2 Weeks with Andrei Guajardo MD New Medications: Enoxaparin Inj (Lovenox Inj) 40 Mg/0.4 Ml Syr 40 MG SQ DAILY Blood Clot Prevention #14 Ref 0 SYRINGE Hydrocodone-Acetaminophen ([place]) 7.5-325 mg Tab 1-2 TAB PO Q6H PRN PAIN #90 Ref 0 TAB Walker with Front Wheels (Walker with Front Wheels) 1 Mis Mis 1 EA .ROUTE DIRECTED #1 Ref 0 EA Continued Medications: Aspirin (Aspirin) 81 Mg Tabdr 81 MG PO DAILY TAB Atenolol (Tenormin) 25 Mg Tab 12.5 MG PO DAILY Blood Pressure Management #30 Ref 0 TAB Atorvastatin (Lipitor) 80 Mg Tab 80 MG PO HS Cholesterol Management #30 Ref 0 TAB Steph Chavarria MD Nov 25, 2016 08:44
--- NOTE | 2016-11-25 08:47 | HHI.FF ---
Face to Face Verification Diagnosis: (1) Hip fracture, right (2) HTN (hypertension) (3) Fall Physical Therapy Order: Evaluate and Treat, Improve ambulation, Strength and gait training Home Health Nursing Order: Medical education Signs/symptoms of disease process Wound care and dressing changes Nursing assessment with vital signs I have seen patient Rajesh Chirinos on 11/25/16. My clinical findings support the need for the requested home health care services because: High risk of falls I certify that my clinical findings support that this patient is homebound because: Post-op weakness Unsteady gait/balance Steph Chavarria MD Nov 25, 2016 08:47
[2016-11-25 09:31] VITALS: RESP 16
[2016-11-25 10:00] VITALS: O2SAT 96
--- NOTE | 2016-11-26 09:00 | MP ---
cc: ÁNGELA CAROLINA M.D. DATE OF SURGERY 11/23/2016 PREOPERATIVE DIAGNOSIS Right intertrochanteric hip fracture. POSTOPERATIVE DIAGNOSES Right intertrochanteric hip fracture. PROCEDURE Intramedullary nailing right intertrochanteric hip fracture. SURGEON Dr. Ángela Carolina COSMETIC CONSULTANT JUANITA Ny ANESTHESIA General ESTIMATED BLOOD LOSS 100 cc COMPLICATIONS None IMPLANTS USED Synthes JUSTIFICATION This patient is an 81-year male who fell sustaining a displaced, comminuted right intertrochanteric hip fracture. He was taken to [facility] emergency room. Orthopedic surgery counseled. X-rays confirmed the above-named finds. The patient was counseled as to his risks, benefits and alternatives to the above-named proposed surgical procedure. He did wish to proceed with surgery. PROCEDURE IN DETAIL A written consent obtained. The patient identified by name, taken to the operating room, placed supine on the operating room table and general anesthesia was administered, as well as two grams of IV Ancef and one gram of IV vancomycin. The patient carefully transferred to the fracture table. A padded traction boot was placed on the right foot. The left leg was placed in a padded well leg mas. All bony prominences and pressure points were well-padded. The patient's neck was carefully monitored and kept neutral. The right hip right lower extremity were prepped and draped using as isopropyl alcohol, Hibiclens solution and Chloraprep solution. After a time-out was performed, a longitudinal incision was made over the lateral aspect of the right hip. The fascial layer was incised. A guidewire was used to gain entrance into the intramedullary canal of the femur. This was followed by a cannulated entry reamer. Subsequently, a Synthes 11 x 180 mm titanium trochanteric femoral nail was inserted into the intramedullary canal of the femur. The 130 degrees locking jig was used to place a guide pin centered in a femoral head under AP and lateral fluoroscopic projections. This was followed by placement of a 115-mm spiral blade. The top locking screw was secured to create a fixed angle locked construct. Distally, the locking jig was used to place a single lateral to medial transverse 38-mm static screw. Fluoroscopic imaging again confirmed hardware placement, and fracture reduction. The surgical wounds were thoroughly irrigated with sterile saline solution. The fascial layer was closed with #1 Vicryl suture. The subcutaneous layer 2-0 Vicryl suture. Skin was closed with Dermabond. Sterile dressing applied. The patient tolerated the procedure well with no intraoperative complication noted. Brayden Orozco, Physician Park Guide Certified, was present during the entire procedure to include patient positioning and the procedure itself. The medical necessity of a physician data assistant was indicated in this case due to the complexity of the procedure. He assisted with appropriate manipulation of the leg and also both preparation of bone and implantation of prosthetic replacement. Ángela Carolina MD JWMakenzie/DJL /9:07 AM /8:52 AM
== END 2016-11-25 12:23 | disposition home health service (06) | DRG 482 ==
LOC: NEPC 16:09 → NEDA 18:53 → N06A 20:25
PROVIDERS: ADMIT Family Medicine; ATTEND Family Medicine
PROC: 0QS606Z Reposition Right Upper Femur with Intramedullary Internal Fixation Device, Open Approach (ICD-10-PCS; principal; 2016-11-23 07:53)
DX: S72.141A Displaced intertrochanteric fracture of right femur, initial encounter for closed fracture (principal); E86.0 Dehydration; I10 Essential (primary) hypertension; E78.00 Pure hypercholesterolemia, unspecified; E78.5 Hyperlipidemia, unspecified; K21.9 Gastro-esophageal reflux disease without esophagitis; W18.39XA Other fall on same level, initial encounter; Y93.89 Activity, other specified; Y99.9 Unspecified external cause status; Y92.094 Garage of other non-institutional residence as the place of occurrence of the external cause
CPT/HCPCS: 71010; 72192; 73502; 73552; 76000; 80048; 80053; 85025; 85027; 85610; 85730; 93005; 94150; 96374; 96375; C1713; J0131; J0690; J1170; J1580; J1650; J2270; J2370; J2405; J3010; J3370; J7030